=== PATIENT | female | born 1995 | race Caucasian/White ===

== ENCOUNTER 2020-06-04 07:55 | Emergency (ER) | payer OTHER ==
[~2020-06-04] VITALS: Ht 167 cm; Wt 90.7 kg
[~2020-06-04 07:55] MED LIST: NAPR-243 PO; NITR100C3 PO; ONDA8TAB9 PO; PHEN100T26 PO
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
[2020-06-04] MEDS ORDERED: ONDANSETRON 4 MG (ZOFRAN) ORAL DISSOLVE TAB PO STA (08:31)
[2020-06-04] MEDS ORDERED: NAPROXEN 250 MG (NAPROSYN) TABLET PO ONE (08:45)
[2020-06-04 08:51] VITALS: BP 132/98
== END 2020-06-04 08:48 | disposition home or self-care (01) ==
LOC: EDUNIT# 07:55 → ER 07:57
DX: S06.0X1A Concussion with loss of consciousness of 30 minutes or less, initial encounter (principal); M79.622 Pain in left upper arm; R40.2410 Glasgow coma scale score 13-15, unspecified time; V40.5XXA Car driver injured in collision with pedestrian or animal in traffic accident, initial encounter
CPT/HCPCS: 99283

== ENCOUNTER 2021-03-30 15:05 | Outpatient (RCR) | payer BC | END 2021-04-28 | disposition home or self-care (01) | PROVIDERS: ATTEND Obstetrics & Gynecology | DX: N94.819 Vulvodynia, unspecified (principal) ==

== ENCOUNTER 2023-01-02 05:33 | Outpatient (CLI) | payer OTHER ==
[~2023-01-02] VITALS: Ht 167.7 cm; Wt 107.7 kg
[2023-01-02] MEDS ORDERED: NORE0.3513 PO (11:03)
[2023-01-02] MEDS ORDERED: OMEP20CA18 PO (11:03)
[2023-01-02] MEDS ORDERED: TRZ50T PO (11:03)
[2023-01-02] MEDS ORDERED: ELAG150T PO (11:03)
[2023-01-02] MEDS ORDERED: SERT-413 PO (11:03)
[2023-01-08] MEDS ORDERED: HYDR-34 PO (08:51)
[2023-01-08] MEDS ORDERED: DOCU100C37 PO (08:51)
[2023-01-08] MEDS ORDERED: IBUP-844 PO (08:51)
[2023-01-08] MEDS ORDERED: SIME80TA16 PO (08:51)
== END 2023-01-02 11:39 | disposition home or self-care (01) ==
LOC: PREOP 05:33
PROVIDERS: ATTEND Obstetrics & Gynecology
DX: Z01.818 Encounter for other preprocedural examination (principal)

== ENCOUNTER 2023-01-08 07:23 | Day surgery (SDC) | payer OTHER ==
[2023-01-08] VITALS (12 sets, daily range): BP systolic 117–139; BP diastolic 58–100
[~2023-01-08] VITALS: Ht 167.7 cm; Wt 107.7 kg
[~2023-01-08 07:23] MED LIST changes: +ELAG150T PO; +NORE0.3513 PO; +OMEP20CA18 PO; +SERT-413 PO; +TRZ50T PO
[2023-01-08] MEDS ORDERED: ceFAZolin INJECTION 2,000 MG in NS (IVPB) 50 ML 50 ML IV ONE (07:45)
[2023-01-08] MEDS ORDERED: metroNIDAZOLE 500MG/100ML IVPB 100 ML IV ONE (07:45)
[2023-01-08] MEDS ORDERED: BUPIVACAINE 0.25% 30 ML VIAL ONE (07:51)
[2023-01-08] MEDS ORDERED: BUPIVACAINE 0.25% 30 ML VIAL INJ ONE (07:54)
[2023-01-08] MEDS ORDERED: MIDAZOLAM INJ 2 MG/2 ML VIAL ONE ×2 (08:15→08:39)
[2023-01-08] MEDS ORDERED: dexAMETHasone INJ 10 MG/ML 1 ML VIAL ONE (08:15)
[2023-01-08] MEDS ORDERED: proPOfol INJECTION 200 MG/20 ML VIAL IV ONE (08:15)
[2023-01-08] MEDS ORDERED: GLYCOPYRROLATE INJ 0.2 MG/ML 2 ML VIAL ONE (08:15)
[2023-01-08] MEDS ORDERED: ONDANSETRON INJECTION 4 MG/2 ML (SDV) ONE (08:15)
[2023-01-08] MEDS ORDERED: LIDOCAINE PF 2% 5 ML VIAL ONE (08:15)
[2023-01-08] MEDS ORDERED: ROCURONIUM 50 MG/5 ML VIAL IV ONE (08:15)
[2023-01-08] MEDS ORDERED: fentaNYL INJECTION 100 MCG/2 ML VIAL ONE ×2 (08:15→10:02)
[2023-01-08] MEDS ORDERED: NEOSTIGMINE 1 MG/1ML 10 ML VIAL ONE (08:15)
[2023-01-08 08:26] LABS: BASOPHILS % (AUTO) 1 % (0-10); EOSINOPHILS # (AUTO) 0.2 10^3/uL (0.0-0.3); EOSINOPHILS % (AUTO) 4 % (0-10); HEMATOCRIT 41 % (35-52); LYMPHOCYTES # (AUTO) 1.5 10^3/uL (1.0-4.0); LYMPHOCYTES % (AUTO) 34 % (12-44); MEAN CORPUSCULAR HEMOGLOBIN 31 pg (25-34); MEAN CORPUSCULAR HGB CONC 35 g/dL (32-36); MEAN CORPUSCULAR VOLUME 90 fL (80-99); MEAN PLATELET VOLUME 10.9 fL (9.0-12.2); MONOCYTES # (AUTO) 0.4 10^3/uL (0.0-1.0); MONOCYTES % (AUTO) 9 % (0-12); NEUTROPHILS # (AUTO) 2.3 10^3/uL (1.8-7.8); NEUTROPHILS % (AUTO) 52 % (42-75); PLATELET COUNT 179 10^3/uL (130-400); WHITE BLOOD COUNT 4.3 10^3/uL (4.3-11.0)
[2023-01-08] MEDS: LACTATED RINGERS 1,000 ML 1,000 ML IV PRN ×2 (08:30→10:00)
[2023-01-08] MEDS ORDERED: MIDAZOLAM INJ 2 MG/2 ML VIAL IV ONE (08:45)
--- NOTE | 2023-01-08 08:49 | Progress Note-Pre Operative ---
Pre-Operative Progress Note Date of Available H&P: Jan 08, 2023 Date H&P Reviewed: Jan 08, 2023 Time H&P Reviewed: 08:40 History & Physical: H&P Reviewed, Patient Examed, No changes noted Pre-Operative Diagnosis: CPP, Endometriosis, Dyspareunia NOAM PULIDO DO Jan 08, 2023 08:49
--- NOTE | 2023-01-08 08:50 | Discharge Inst-Women's Service ---
Discharge Inst-Women's Serv Depart Medication/Instructions New, Converted or Re-Newed RX: Transmitted to Pharmacy Problems Reviewed?: Yes Consults/Follow Up Additional Follow Up: Yes Orders/Referrals Dr. Cuba in 7-10 days and in 8 weeks Activity Activity: Activity as Tolerated Driving Instructions: No Driving for 1 Week NO SMOKING: NO SMOKING Nothing Inside Vagina: No Douching, No Penhook, No Tampons Diet Discharge Diet: No Restrictions Symptoms to Report to : Bleeding Excessive, Pain Increased, Fever Over 101 Degrees F, Vaginal Bleeding Increase, Questions/Concerns For Any Problems or Questions: Contact Your Physician Skin/Wound Care Infection Signs and Symptoms: Increased Redness, Foul Odor of Wound, Increased Drainage, Skin Itchy or Has a Rash, Increased Swelling, Temperature Above 101 F Operative Area Clean and Dry: Keep Incision Clean/Dry Stitches/Elisa/Dermabond: Dermabond, Care of Stitches Bathing Instructions: NOAM Laura DO Jan 08, 2023 08:50
[2023-01-08] MEDS ORDERED: SIME80TA16 PO (08:51)
[2023-01-08] MEDS ORDERED: DOCU100C37 PO (08:51)
[2023-01-08] MEDS ORDERED: HYDR-34 PO (08:51)
[2023-01-08] MEDS ORDERED: IBUP-844 PO (08:51)
[2023-01-08] MEDS ORDERED: BENZOCAINE LOZENGES 1 EACH MM PRN (09:00)
[2023-01-08] MEDS ORDERED: SIMETHICONE 80 MG CHEWABLE TABLET PO PRN (09:00)
[2023-01-08] MEDS ORDERED: ONDANSETRON INJECTION 4 MG/2 ML (SDV) IV PRN (09:00)
[2023-01-08] MEDS ORDERED: LACTATED RINGERS 1,000 ML 1,000 ML IV SCH (09:00)
[2023-01-08] MEDS ORDERED: ZOLPIDEM 5 MG (AMBIEN) TAB PO PRN (09:00)
[2023-01-08] MEDS ORDERED: ANTACID SUSPENSION 30 ML UDC PO PRN (09:00)
[2023-01-08] MEDS ORDERED: IBUPROFEN 600 MG TABLET PO PRN (09:00)
[2023-01-08] MEDS ORDERED: DOCUSATE SODIUM 100 MG CAPSULE PO PRN (09:00)
[2023-01-08] MEDS ORDERED: HYDROcodone/ACETAMINOPHEN 7.5 MG/325 MG TABLET PO PRN (09:00)
[2023-01-08] MEDS ORDERED: morphine INJ 10 MG/ML 1ML (SYR OR VIAL) IVP ONE (10:30)
[2023-01-08] MEDS ORDERED: ONDANSETRON INJECTION 4 MG/2 ML (SDV) IVP PRN (10:30)
[2023-01-08] MEDS ORDERED: HYDROmorphone INJECTION 2 MG/ML VIAL IV ONE (10:30)
[2023-01-08] MEDS ORDERED: KETOROLAC INJ 30 MG/ML VIAL ONE (10:31)
[2023-01-08] MEDS ORDERED: morphine INJ 10 MG/ML 1ML (SYR OR VIAL) ONE (10:37)
[2023-01-08] MEDS: KETOROLAC INJ 30 MG/ML VIAL IVP PRN ×2 (10:41→16:45)
--- NOTE | 2023-01-08 11:14 | Anesthesia-General Post-Op ---
General Patient Condition Mental Status/LOC: Same as Preop Cardiovascular: Satisfactory Nausea/Vomiting: Absent Respiratory: Satisfactory Pain: Controlled Complications: Absent Post Op Complications Complications None Follow Up Care/Instructions Patient Instructions None needed. Anesthesia/Patient Condition Patient Condition Patient was just transferred to the 3rd floor from PACU and was doing well, no complaints, stable vital signs, no apparent adverse anesthesia problems. No complications reported per nursing. MAIA ZAZUETA DO Jan 08, 2023 11:14
[2023-01-08] MEDS ORDERED: SEVOFLURANE (ULTANE) 15 ML INHAL SOLN ONE (11:24)
--- NOTE | 2023-01-08 20:10 | OPERATIVE REPORT ---
DATE OF SERVICE: 01/08/2023 PREOPERATIVE DIAGNOSES: 1. A 27-year-old female with chronic pelvic pain. 2. Dysmenorrhea. 3. Dyspareunia. POSTOPERATIVE DIAGNOSES: 1. A 27-year-old female with chronic pelvic pain. 2. Dysmenorrhea. 3. Dyspareunia. 4. Extensive adhesions of the pelvic peritoneum. PROCEDURE: Robotic-assisted total laparoscopic hysterectomy, bilateral salpingo-oophorectomy with lysis of adhesions. SURGEON: German Pulido DO SPINNING MACHINE TENDER: Essie Torrez DNP was necessary for manipulation and retraction throughout the procedure. ANESTHESIA: General endotracheal. ESTIMATED BLOOD LOSS: Minimal. URINE OUTPUT: 50 mL clear at the end of the procedure. FLUIDS: 1200 mL lactated Ringer's solution. FINDINGS: Grossly normal-appearing external female genitalia, filmy serosal adhesions of the omentum to the serosa of the uterus, bilateral fallopian tubes, round ligaments. Dense adhesions of the omentum to the right ovary. The left ovary was also encased in filmy omental adhesions as well. SPECIMEN SENT: Uterus, bilateral fallopian tubes and ovaries. INDICATIONS FOR PROCEDURE: This is a 27-year-old female patient who had sought care in my office nearly 3 years ago, now only clinically diagnosed her and then surgically diagnosed her with endometriosis. She underwent more conservative measures including long-term hormonal suppression therapy. Also, long-term GnRH antagonist therapy, all of which offered some alleviation of her pain, however. The patient returned for an annual exam earlier this month and was describing the pain returning and becoming overwhelming again. She realizes at this point, she does not want any children, and if she does, she will adopt. She understands that definitive measures and treatment for endometriosis would be hysterectomy. Risk of the procedure were discussed with the patient in detail including risk of bleeding, infection, damage to surrounding structures including but not limited to bowel, bladder, ureter, kidneys, possible need for operation, postoperative complications that may occur, recovery timeframe, risk from anesthesia and even . We also discussed the risk of hormone replacement therapy and that all need to be on hormone replacement therapy after recovery of this has occurred, and after her pain has subsided. After everything was discussed with the patient in detail, she was agreeable to proceed. Consent was obtained. The patient was taken to the operating room. OPERATIVE REPORT IN DETAIL: Once in the operating room, anesthesia was administered and found to be adequate, was placed in dorsal lithotomy position, prepped and draped in normal sterile fashion. A timeout was performed. Rojas catheter was placed using sterile technique. A weighted speculum was inserted to the patient's vagina. Right angle retractor was used to visualize cervix and was grasped at 12 o'clock position using a long Allis clamp. An 0 Vicryl suture was then placed to anterior lip of the cervix, which is used as retraction at that point. I then selected a #8 BEN uterine manipulator tip and a 3 cm colpotomy ring after the uterus was sounded and found to be a depth of 8 cm. The BEN tip was advanced into the uterus where the balloon was deployed and the colpotomy ring was advanced around the vaginal fornix. I then removed all the instruments from the patient's vagina, performed change of gloves and I turned my attention to the abdomen where subcostally the midclavicular line on the left side, I introduced the Veress needle to skin until trocar placement was confirmed using saline drop test. An opening pressure of 6 mmHg was noted. I proceeded with CO2 insufflation to max pressure of 15 mmHg, at which point I made an 8-mm infraumbilical incision with a knife and directed a blunt da Antionette laparoscopic camera trocar through the incision to ensure proper placement was confirmed using da Antionette laparoscope. There was no evidence of damage from entry site. A brief scan of the upper abdominal anatomy appears to be grossly normal. Then, I removed the Veress needle at that point. I then had the patient was placed in steep Trendelenburg where I am able to visualize all the pelvic anatomy as defined in my findings above. I placed two lateral trocars, these were both 8 mm trocars. They were placed approximately 10 cm lateral to my infraumbilical trocar. Once these were in place under direct visualization of laparoscope with no evidence of damage upon placement, I bring in the da Antionette robot and docked in appropriate fashion, placing the SynchroSeal device in left hand, monopolar maxime in the right hand. I then took my place at [email or web address] operative console. I began by taking down the filmy adhesions of the uterus, tubes, round ligaments, bilateral ovaries. After I freed up the anatomy, I performed the following dissection bilaterally, starting at the infundibulopelvic ligament. I sealed and transected this using the SynchroSeal device. I then grasped the round ligament, which I sealed and transected using SynchroSeal device and then grasped the round broad ligament, which I was sealed and transected using the SynchroSeal device. I did this down to the level of the lower uterine segment, at which point I the anterior and posterior leaflets of the broad ligament. Anterior leaflet was taken around the anterior vaginal fornix. The posterior leaflet was taken around the posterior vaginal fornix. This allows me to skeletonize the uterine vessels laterally, which I sealed and transected using SynchroSeal device. I then created a colpotomy at 12 o'clock position using monopolar maxime and taken circumferentially around the vaginal fornix amputating the cervix away from the vagina. I then removed the entire specimen through the vagina. The vaginal cuff was then closed using 2-0 V-Loc in a running fashion, after which, no active bleeding noted from my dissection planes. I then undocked the da Antionette robot and proceeded with remainder of the case laparoscopically. I copiously irrigated the pelvis using normal saline. Once again, there was no active bleeding noted from any of my dissection planes. I placed Surgiflo hemostatic agent over all my planes of dissection to ensure excellent postoperative hemostasis. I then had the patient taken out of steep Trendelenburg, where I removed the lateral trocars under direct visualization of the laparoscope. The infraumbilical trocars were left in place to release the remainder of insufflation and to introduce 10 mL of 0.25% Marcaine in the peritoneal cavity for postoperative pain management. I then removed this trocar as well. The skin was reapproximated using 4-0 Monocryl interrupted subcuticular stitches. Dermabond was applied to the incisions and Band-Aids were placed over the incisions as well. Rojas catheter was left in place. Lap and sponge counts were correct at the end of the procedure. Instrument counts were correct as well. Two grams of Ancef and 500 mg of Flagyl were given preoperatively for infection prophylaxis. Job ID: [id number] DocumentID: [id number] Dictated Date: 01/08/2023 10:22:11 Administrative Staff Supervisor Date: 01/08/2023 20:08:00 Dictated By: GERMAN PULIDO DO
== END 2023-01-08 17:25 | disposition home or self-care (01) ==
LOC: SDC 07:23 → WS 11:10 → SDC 17:25
PROVIDERS: ATTEND Obstetrics & Gynecology
DX: N94.6 Dysmenorrhea, unspecified (principal); N94.10 Unspecified dyspareunia; N73.6 Female pelvic peritoneal adhesions (postinfective); N83.292 Other ovarian cyst, left side; N83.291 Other ovarian cyst, right side; N80.30 Endometriosis of pelvic peritoneum, unspecified; G89.29 Other chronic pain; Z87.891 Personal history of nicotine dependence
CPT/HCPCS: 36415; 84703; 85025; 86850; 86900; 86901; 87081; 94664